=== PATIENT | male | born 1965 | race Caucasian/White ===

== ENCOUNTER 2016-06-17 20:20 | Inpatient (IN) | payer MEDICARE, MEDICAID ==
[~2016-06-17] VITALS: Ht 185.4 cm; Wt 146.5 kg
[2016-06-18 02:14] VITALS: BP 123/90
[2016-06-18] MEDS: ZOLPIDEM TARTRATE 10 MG TABLET PO PRN ×2 (02:21→20:52)
[2016-06-18] MEDS: LORazepam 1 MG TABLET PO PRN ×2 (02:21→09:56)
[2016-06-18 08:09] VITALS: BP 113/80
[2016-06-18] MEDS ORDERED: ONDANSETRON HCL 4 MG TABLET PO PRN (10:30)
[2016-06-18] MEDS ORDERED: ALBUTEROL SULFATE HFA 90 MCG/PUFF 8 GM INHALER IH PRN (10:30)
[2016-06-18] MEDS ORDERED: CloNIDine HCL 0.1 MG TABLET PO PRN (10:30)
[2016-06-18] MEDS ORDERED: MAG HYDROX/AL HYDROX/SIMETH ES 30 ML SUSPENSION UDCUP PO PRN (10:30)
[2016-06-18] MEDS ORDERED: BACITRACIN 28.4 GM OINTMENT TP PRN (10:30)
[2016-06-18] MEDS ORDERED: LOPERAMIDE HCL 2 MG CAPSULE PO PRN (10:30)
[2016-06-18] MEDS ORDERED: IBUPROFEN 600 MG TABLET PO PRN (10:30)
[2016-06-18] MEDS ORDERED: PETROLATUM,WHITE 71 GM JELLY TP PRN (10:30)
[2016-06-18] MEDS ORDERED: MAGNESIUM HYDROXIDE SUSPENSION 30 ML UDCUP PO PRN (10:30)
[2016-06-18] MEDS ORDERED: CYANOCOBALAMIN 1,000 MCG/ML VIAL IM ONE (10:30)
[2016-06-18] MEDS ORDERED: BENZOCAINE/MENTHOL LOZENGE MM PRN (10:30)
[2016-06-18 16:11] VITALS: BP 110/86
[2016-06-18] MEDS: BusPIRone HCL 5 MG TABLET PO SCH (17:27)
[2016-06-18] MEDS ORDERED: OLANZapine 5 MG TABLET PO SCH (21:00)
[2016-06-18] MEDS: RIVAROXABAN 20 MG TABLET PO SCH (21:59)
[2016-06-19 06:57] VITALS: BP 123/79
[2016-06-19] MEDS: RIVAROXABAN 20 MG TABLET PO SCH (08:21)
[2016-06-19] MEDS: FLUoxetine HCL 20 MG CAPSULE PO SCH (08:21)
[2016-06-19] MEDS: BusPIRone HCL 5 MG TABLET PO SCH ×3 (08:21→16:41)
[2016-06-19] MEDS ORDERED: LORazepam 2 MG/ML VIAL IM ONE (15:15)
[2016-06-19] MEDS ORDERED: HALOPERIDOL LACTATE 5 MG/ML VIAL IM ONE (15:15)
[2016-06-19] MEDS ORDERED: DiphenhydrAMINE HCL 50 MG/ML VIAL IM ONE (15:15)
[2016-06-19 16:37] VITALS: BP 125/79
[2016-06-19] MEDS: MUPIROCIN CALCIUM 2% 22 GM OINTMENT NASAL SCH (16:41)
[2016-06-19 20:00] VITALS: BP 128/80
[2016-06-19] MEDS ORDERED: OLANZapine 10 MG TABLET PO SCH (21:00)
[2016-06-19] MEDS: ZOLPIDEM TARTRATE 10 MG TABLET PO PRN (22:16)
[2016-06-20 08:05] VITALS: BP 133/79
[2016-06-20] MEDS: BusPIRone HCL 5 MG TABLET PO SCH ×3 (09:39→16:34)
[2016-06-20] MEDS: FLUoxetine HCL 20 MG CAPSULE PO SCH (09:39)
[2016-06-20] MEDS: MUPIROCIN CALCIUM 2% 22 GM OINTMENT NASAL SCH ×2 (11:19→16:34)
[2016-06-20 16:13] VITALS: BP 132/102
[2016-06-20] MEDS ORDERED: RIVAROXABAN 20 MG TABLET PO SCH (17:30)
[2016-06-20] MEDS: ZOLPIDEM TARTRATE 10 MG TABLET PO PRN (20:52)
[2016-06-20] MEDS ORDERED: OLANZapine 7.5 MG TABLET PO SCH (21:00)
[2016-06-20] MEDS: LORazepam 1 MG TABLET PO PRN (23:38)
[2016-06-21 08:05] VITALS: BP 132/86
[2016-06-21] MEDS ORDERED: FLUoxetine HCL 20 MG CAPSULE PO SCH (09:00)
[2016-06-21] MEDS: MUPIROCIN CALCIUM 2% 22 GM OINTMENT NASAL SCH (09:10)
[2016-06-21] MEDS: BusPIRone HCL 5 MG TABLET PO SCH ×2 (09:11→12:24)
[2016-06-21] MEDS ORDERED: FLUO-191 PO (15:31)
[2016-06-21] MEDS ORDERED: OLAN7.5T2 PO (15:31)
[2016-06-21] MEDS ORDERED: BUSP5TAB20 PO (15:31)
[2016-06-21] MEDS ORDERED: MUPI1OIN4 NS (15:35)
[2016-06-21] MEDS ORDERED: RIVA20TA PO (15:36)
== END 2016-06-21 16:00 | disposition home or self-care (01) | DRG 885 ==
LOC: B2X 06-18 01:15 → 3EX 06-19 21:22
PROVIDERS: ADMIT Psychiatry & Neurology Psychiatry; ATTEND Psychiatry & Neurology Psychiatry
DX: F33.2 Major depressive disorder, recurrent severe without psychotic features (principal); Z68.41 Body mass index [BMI] 40.0-44.9, adult; F20.0 Paranoid schizophrenia; F60.3 Borderline personality disorder; E66.01 Morbid (severe) obesity due to excess calories; K21.9 Gastro-esophageal reflux disease without esophagitis; G47.00 Insomnia, unspecified; Z62.819 Personal history of unspecified abuse in childhood; Z79.01 Long term (current) use of anticoagulants; Z86.718 Personal history of other venous thrombosis and embolism; Z88.8 Allergy status to other drugs, medicaments and biological substances; Z63.0 Problems in relationship with spouse or partner; Z88.5 Allergy status to narcotic agent; Z79.899 Other long term (current) drug therapy
CPT/HCPCS: 87081; J1200; J1630; J2060; J3420